=== PATIENT | female | born 1995 | race Caucasian/White ===

== ENCOUNTER 2021-01-13 14:23 | Emergency (ER) | payer BC ==
[~2021-01-13] VITALS: Ht 165.1 cm; Wt 68.0 kg
[2021-01-13 14:36] VITALS: BP_SYST 105
[2021-01-13] MEDS ORDERED: ACETAMINOPHEN EXTRA STRENGTH 500 MG TAB PO ONE (15:25)
[2021-01-13] MEDS ORDERED: NACL 0.9% 1,000 ML IV ONE (15:25)
[2021-01-13 16:05] LABS: BASOPHILS % (AUTO) 0.5 % (0.0-2.0); EOSINOPHILS % (AUTO) 0.4 % (0.0-4.0); HEMATOCRIT 38.8 % (36-48); HEMOGLOBIN 12.9 g/dL (12.0-16.0); LYMPHOCYTES # (AUTO) 2.1 K/uL (2.5-16.5); LYMPHOCYTES % (AUTO) 24.3 % (20.5-51.1); MEAN CORPUSCULAR HEMOGLOBIN 30 pg (27-31); MEAN CORPUSCULAR HGB CONC 33 g/dL (33-37); MEAN CORPUSCULAR VOLUME 88.9 fL (80-94); MONOCYTES # (AUTO) 0.6 K/uL (0.8-1.0); MONOCYTES % (AUTO) 7.7 % (1.7-9.3); NEUTROPHILS # (AUTO) 5.7 K/uL (1.8-7.7); NEUTROPHILS % (AUTO) 67.1 % (42.2-75.2); PLATELET COUNT (AUTO) 253 K/uL (140-450); RED BLOOD CELL COUNT(AUTO) 4.37 MIL/uL (4.20-5.40); RED CELL DISTRIBUTION WIDTH 15.1 % (11.6-13.7); WHITE BLOOD COUNT (AUTO) 8.4 K/uL (4.8-10.8)
[2021-01-13 16:20] LABS: ALBUMIN 3.7 g/dL (3.4-5.0); ANION GAP 12.6 (8-16); CREATININE 0.5 mg/dL (0.6-1.3); POTASSIUM 4.6 mmol/L (3.5-5.1); TOTAL BILIRUBIN 0.2 mg/dL (0.0-1.0)
[2021-01-13 16:37] LABS: BILIRUBIN,URINE NEGATIVE (NEGATIVE); BLOOD, URINE NEGATIVE (NEGATIVE); COLOR,URINE YELLOW (YELLOW); LEUKOCYTE ESTERASE ,URINE 1+ (NEGATIVE); NITRITE, URINE NEGATIVE (NEGATIVE); UGLUCOSE NEGATIVE (NEGATIVE)
[2021-01-13 16:39] LABS: APPEARANCE,URINE HAZY (CLEAR)
[2021-01-13 16:46] LABS: RBC,URINE NONE SEEN /HPF (0-5); WBC,URINE 0-5 /HPF (0-5)
--- NOTE | 2021-01-13 17:11 | NUR ---
PT AMBULATED TO BED 11
--- NOTE | 2021-01-13 17:18 | NUR ---
25 Y/O FEMALE C/O LOWER ABDOMINAL PAIN, NAUSEA, HEADACHE X 1DAY. PT STATES SHE IS 13 WEEKS. LMP 10/12/20. [id number]. PT STATES RECENTLY DX WITH UTI & FINISHED ANTIBIOTICS TODAY. DENIES FEVER/CHILLS. ABDOMEN IS SOFT, ROUND, NON-TENDER, BOWEL SOUNDS ACTIVE X4. DENIES PMH NKA
--- NOTE | 2021-01-13 17:31 | NUR ---
PT AT PT BEDSIDE FOR U/S.
[2021-01-13] MEDS ORDERED: NITR100C7 PO (17:45)
[2021-01-13 18:29] VITALS: BP 123/78
--- NOTE | 2021-01-13 18:29 | NUR ---
Patient discharged with v/s stable. Written and verbal after care instructions given UTI, 1ST TRIMESTER and explained. Patient alert, oriented and verbalized understanding of instructions. Ambulatory with steady gait. All questions addressed prior to discharge. ID band removed. Patient advised to follow up with PMD. Rx of MACROBID PO FOR 10DAYS given. Patient educated on indication of medication including possible reaction and side effects. Opportunity to ask questions provided and answered.
== END 2021-01-13 18:29 | disposition home or self-care (01) ==
LOC: MED 14:23
DX: O23.41 Unspecified infection of urinary tract in pregnancy, first trimester (principal); R51.9 Headache, unspecified; R42 Dizziness and giddiness; Z3A.14 14 weeks gestation of pregnancy
CPT/HCPCS: 36415; 80053; 81001; 81025; 85025; 87086; 99284; J7030